=== PATIENT | female | born 2000 | race Caucasian/White ===

== ENCOUNTER 2020-04-21 14:30 | Emergency (ER) | payer OTHER ==
[~2020-04-21] VITALS: Ht 177.8 cm; Wt 90.7 kg
[~2020-04-21 14:30] MED LIST: CEPHALEXIN500 MG PO; NORCO 5-325 TA1 EACH PO
--- OUTSIDE RECORDS SUMMARY | 2020-04-21 14:32 | XMS ---
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 Care History Medical/Surgical 12/12/2018 [facility] \T\middot;\T\nbsp; PATIENT IS A [employer] MEMBER. \T\middot;\T\nbsp; PLEASE REFER PATIENT TO [facility] FOR NON EMERGENT MEDICAL NEEDS. \T\middot;\ T\nbsp; [facility] CAN SEE PATIENTS SAME DAY FOR APTS IF PATIENT CALLS FIRST THING IN THE MORNING. E.D. VISIT COUNT (12 MO.) [address] [place] [address] TOTAL 1 NOTE: Visits indicate total known visits. ED/UCC VISIT TRACKING (12 MO.) 04/21/2020 14:[address] [facility] OR TYPE: Emergency COMPLAINT: - POSSIBLE ALCOHOL POISONING INPATIENT VISIT TRACKING (12 MO.) No inpatient visits to display in this time frame [email or web address]
[2020-04-21] MEDS ORDERED: ONDANSETRON ODT8 MG PO (15:58)
== END 2020-04-21 16:10 | disposition home or self-care (01) ==
LOC: ED 14:30
DX: K29.20 Alcoholic gastritis without bleeding (principal); J45.909 Unspecified asthma, uncomplicated; F17.200 Nicotine dependence, unspecified, uncomplicated; Z88.0 Allergy status to penicillin
CPT/HCPCS: 80053; 83690; 84703; 85025; 96374; 96375; 99284-25; C9113; J2405; J7030